=== PATIENT | male | born 1965 | race Caucasian/White ===

== ENCOUNTER → 2018-03-04 | Outpatient (CLI) | payer BC ==
[~2018-03-04] MED LIST: AMLO5TAB2 PO; ATEN25TA PO; CHOL1CAP34 PO; VITA500S3 SL; ZINC100T3 PO
--- NOTE | 2018-03-05 14:03 | EKG ---
Date Performed: 03/04/2018 Time Performed: 12:01:26 PTAGE: 52 years EKG: Sinus rhythm NORMAL ECG NO PREVIOUS TRACING DOCTOR: Archie Carrasquillo Interpretating Date/Time 03/05/2018 14:02:49
--- NOTE | 2018-03-05 19:14 | MH ---
cc: Arie Chau MD DATE OF ADMISSION: 03/04/2018 CHIEF COMPLAINT: He has chronic tonsillitis, for tonsillectomy. PAST MEDICAL HISTORY: Unremarkable. PAST SURGICAL HISTORY: Unremarkable. REVIEW OF SYSTEMS, FAMILY HISTORY, SOCIAL HISTORY: Unremarkable. PHYSICAL EXAMINATION: GENERAL: Well appearing patient in no acute distress noted. HEENT: Reveals significant chronic follicular tonsillitis. NECK: Soft, supple. No masses noted. LUNGS: Clear. HEART: Regular rate and rhythm. ABDOMEN: Soft and nontender. EXTREMITIES: Without cyanosis, clubbing or edema. NEUROLOGIC: Alert, oriented, nonfocal neurologic exam. IMPRESSION: The patient with chronic tonsillitis, for tonsillectomy. Instructed surgery and possible complications including anesthetic complication, cardiac difficulty, pulmonary difficulty, stroke or even , surgical complication, bleeding, infection, risk of postop hemorrhage, transfusion, hypoglossal nerve injury, velopharyngeal insufficiency or nasopharyngeal stenosis. The patient appeared to agree, accepted, understand above-mentioned risks and benefits. In addition, no guarantees or warranties regarding outcome were given. We will, therefore, proceed with surgery. MD NIKITA Gamboa/DAPHNIE , 06:46 PM , 07:13 PM
== END ==
LOC: CPRE 11:39
PROVIDERS: ATTEND Specialist
DX: Z01.810 Encounter for preprocedural cardiovascular examination (principal); J35.01 Chronic tonsillitis
CPT/HCPCS: 93005